=== PATIENT | male | born 1930 | race African-American/Black ===

== ENCOUNTER → 2016-04-24 | Outpatient (CLI) | payer MEDICARE, OTHER ==
[2016-04-25 04:38] LABS: HEPATITIS C VIRUS AB <0.1 s/co ratio (0.0-0.9)
== END ==
LOC: OD 12:00
PROVIDERS: ATTEND Urology
DX: Z13.818 Encounter for screening for other digestive system disorders (principal)
CPT/HCPCS: 36415; 86803; 86804

== ENCOUNTER → 2016-12-11 | Outpatient (CLI) | payer MEDICARE, OTHER ==
--- NOTE | 2016-12-11 14:48 | RADIOLOGY REPORT (SQ) ---
EXAM DESCRIPTION: CT ABD/PELVIS WITH IV ORAL COMPLETED DATE/TIME: 12/11/2016 2:29 pm REASON FOR STUDY: PERIUMBILICAL PAIN R10.33 PERIUMBILICAL PAIN COMPARISON: CT abdomen and pelvis 06/17/2009, 06/18/2010 MRI abdomen 02/14/2016 TECHNIQUE: CT scan of the abdomen and pelvis performed using helical scanning technique with dynamic intravenous contrast injection. Patient drank oral contrast. Images reviewed with lung, soft tissue , and bone windows. Reconstructed coronal and sagittal MPR images reviewed. Delayed images for evalua tion of the urinary system also acquired. All images stored on PACS. All CT scanners at this facility use dose modulation, iterative reconstruction, and/or weight based d osing when appropriate to reduce radiation dose to as low as reasonably achievable (ALARA). [facility]: Dose Right [facility]: CareDose [facility]: Dose Right [facility]: Teradose 4D [facility]: geolad CONTRAST TYPE AND DOSE: contrast/concentration: Isovue 370.00 mg/ml; Total Contrast Delivered: 84.0 ml; Total Saline Delivered: 69.0 ml RENAL FUNCTION: Creatinine 1.0 RADIATION DOSE: Up-to-date CT equipment and radiation dose reduction techniques were employed. CTDIv ol: 6.3 - 7.4 mGy. DLP: 665 mGy-cm.. LIMITATIONS: None. FINDINGS: LOWER CHEST: Small hiatal hernia. Lung bases are clear. Mild gynecomastia. LIVER: Normal size. No masses. No dilated ducts. SPLEEN: Normal size. No focal lesions. PANCREAS: No masses. No significant calcifications. No adjacent inflammation or peripancreatic fluid collections. Pancreatic duct not dilated. GALLBLADDER: Gallbladder is distended. No radiopaque stones. Question gallbladder wall thickening. ADRENAL GLANDS: No significant masses or asymmetry. RIGHT KIDNEY AND URETER: No solid masses. 6.3 cm right upper pole renal cortical cyst. No significa nt calcifications. No hydronephrosis or hydroureter. LEFT KIDNEY AND URETER: No solid masses. 2.3 and 2.1 cm left midpole parapelvic cysts. No signific ant calcifications. No hydronephrosis or hydroureter. AORTA AND VESSELS: No aneurysm. No dissection. Renal arteries, SMA, celiac without stenosis. RETROPERITONEUM: No retroperitoneal adenopathy, hemorrhage or masses. BOWEL AND PERITONEAL CAVITY: No masses or inflammatory changes. No free fluid or peritoneal masses. Patient drank oral contrast. No CT evidence of bowel obstruction. Diffuse colonic diverticulosis wi thout CT signs of acute diverticulitis. APPENDIX: Normal. PELVIS: No mass. No free fluid. Normal bladder. Enlarged prostate, 6.6 x 6.2 cm in size ABDOMINAL WALL: No masses. No hernias. BONES: No significant or acute findings. OTHER: No other significant finding. IMPRESSION: Distended gallbladder with borderline gallbladder wall thickening. Colonic diverticulosis without CT signs of acute diverticulitis. No CT findings worrisome for acute appendicitis. TECHNICAL DOCUMENTATION: JOB ID: [id number] Quality ID # [id number]: Final reports with documentation of one or more dose reduction techniques (e.g., Au tomated exposure control, adjustment of the mA and/or kV according to patient size, use of iterative reconstruction technique) 2010 [employer]- All Rights Reserved
== END ==
LOC: RAD 10:50
PROVIDERS: ATTEND Internal Medicine
DX: R10.33 Periumbilical pain (principal)
CPT/HCPCS: 74177; 82565

== ENCOUNTER → 2016-12-14 | Outpatient (CLI) | payer MEDICARE, OTHER ==
[2016-12-14 13:59] LABS: ABSOLUTE EOSINOPHILS # (AUTO) 0.2 10^3/uL (0.0-0.6); ABSOLUTE LYMPHOCYTES (AUTO) 1.3 10^3/uL (0.5-4.7); ABSOLUTE MONOCYTES (AUTO) 0.4 10^3/uL (0.1-1.4); ABSOLUTE NEUT (AUTO) 2.7 10^3/uL (1.7-8.2); BASOPHILS % (AUTO) 0.4 % (0-2); EOSINOPHILS % (AUTO) 4.8 % (0-6); HEMATOCRIT 43.7 % (37.9-51.0); HEMOGLOBIN 14.9 g/dL (13.5-17.0); LYMPHOCYTES % (AUTO) 27.6 % (13-45); MEAN CORPUSCULAR HEMOGLOBIN 32.5 pg (27.0-33.4); MEAN CORPUSCULAR HGB CONC 34.1 g/dL (32.0-36.0); MEAN CORPUSCULAR VOLUME 95 fl (80-97); MONOCYTES % (AUTO) 9.1 % (3-13); RED BLOOD COUNT 4.58 10^6/uL (4.35-5.55); SEGMENTED NEUTROPHILS % (AUTO) 58.1 % (42-78); WHITE BLOOD COUNT 4.6 10^3/uL (4.0-10.5)
[2016-12-14 14:22] LABS: ALANINE AMINOTRANSFERASE 30 U/L (21-72); ALBUMIN 4.6 g/dL (3.5-5.0); ALKALINE PHOSPHATASE 78 U/L (38-126); ANION GAP 13 (5-19); ASPARTATE AMINO TRANSFERASE 43 U/L (17-59); BILIRUBIN,DIRECT 0.3 mg/dL (0.0-0.4); BILIRUBIN,TOTAL 0.6 mg/dL (0.2-1.3); BLOOD UREA NITROGEN 30 mg/dL (7-20); CALCIUM 9.7 mg/dL (8.4-10.2); CARBON DIOXIDE 27 mmol/L (22-30); CHLORIDE 102 mmol/L (98-107); CREATININE RESULT 1.39 mg/dL (0.52-1.25); GLUCOSE 79 mg/dL (75-110); POTASSIUM 4.3 mmol/L (3.6-5.0); SODIUM 142.2 mmol/L (137-145); TOTAL PROTEIN 7.9 g/dL (6.3-8.2)
== END ==
LOC: OD 12:39
PROVIDERS: ATTEND Surgery
DX: R10.9 Unspecified abdominal pain (principal)
CPT/HCPCS: 36415; 80053; 83690; 85025

== ENCOUNTER 2017-01-12 08:34 | Inpatient (IN) | payer MEDICARE, OTHER ==
[2017-01-05 10:57] LABS: HEMATOCRIT 39.2 % (37.9-51.0); HEMOGLOBIN 13.3 g/dL (13.5-17.0); HGB HCT DIFFERENCE 0.7; MEAN CORPUSCULAR HEMOGLOBIN 32.3 pg (27.0-33.4); MEAN CORPUSCULAR HGB CONC 33.8 g/dL (32.0-36.0); MEAN CORPUSCULAR VOLUME 96 fl (80-97); RED BLOOD COUNT 4.11 10^6/uL (4.35-5.55); RED CELL DISTRIBUTION WIDTH 14.2 % (11.5-14.0); WHITE BLOOD COUNT 3.4 10^3/uL (4.0-10.5)
[2017-01-05 11:26] LABS: ALANINE AMINOTRANSFERASE 35 U/L (21-72); ALBUMIN 3.8 g/dL (3.5-5.0); ALKALINE PHOSPHATASE 93 U/L (38-126); ANION GAP 10 (5-19); ASPARTATE AMINO TRANSFERASE 34 U/L (17-59); BILIRUBIN,DIRECT 0.2 mg/dL (0.0-0.4); BILIRUBIN,TOTAL 0.3 mg/dL (0.2-1.3); BLOOD UREA NITROGEN 17 mg/dL (7-20); CALCIUM 9.5 mg/dL (8.4-10.2); CARBON DIOXIDE 25 mmol/L (22-30); CHLORIDE 109 mmol/L (98-107); GLUCOSE 105 mg/dL (75-110); POTASSIUM 3.9 mmol/L (3.6-5.0); SODIUM 144.1 mmol/L (137-145); TOTAL PROTEIN 6.3 g/dL (6.3-8.2)
--- NOTE | 2017-01-05 13:10 | EKG REPORT ---
SEVERITY:- ABNORMAL ECG - SINUS RHYTHM FIRST DEGREE AV BLOCK LEFT ANTERIOR FASCICULAR BLOCK NONSPECIFIC ST-T CHANGES ANTEROLATERAL LEADS. : Confirmed by: Dino Knapp MD 05-Jan-2017 13:09:42
[~2017-01-12 08:34] MED LIST: ACETAMINOPHEN 325 MG TABLET PO PRN; BUPIVACAINE HCL 0.25 % INJ/PF (2.5 MG/1 ML) 30 ML VIAL ONE; CEFAZOLIN 1 GM/D5W RTU 1 GM/50 ML RTUPB IV PRN; RINGERS SOLUTION,LACTATED 1,000 ML IV PRN
[2017-01-12] MEDS ORDERED: HYDROMORPHONE HCL INJ/PF 2 MG/ML AMPULE ONE (09:51)
[2017-01-12] MEDS ORDERED: FENTANYL CITRATE INJ/PF 100 MCG/2 ML AMPUL ONE (09:51)
[2017-01-12] MEDS ORDERED: MIDAZOLAM 2 MG/2 ML INJ ONE (09:52)
[2017-01-12] MEDS ORDERED: PROPOFOL INJ 200 MG/20 ML VIAL IV ONE (09:52)
[2017-01-12] MEDS ORDERED: EPHEDRINE SULFATE INJ 50 MG/1 ML AMPULE ONE (10:24)
[2017-01-12] MEDS ORDERED: MORPHINE SULFATE 10 MG/ML INJ IV PRN (11:24)
[2017-01-12] MEDS ORDERED: ONDANSETRON HCL INJ/PF 4 MG/2 ML SDV IV PRN ×2 (11:24→11:50)
[2017-01-12] MEDS ORDERED: FENTANYL CITRATE INJ/PF 100 MCG/2 ML AMPUL IV PRN ×3 (11:24)
[2017-01-12] MEDS ORDERED: PROMETHAZINE HCL INJ 25 MG/1 ML VIAL IV PRN (11:24)
[2017-01-12] MEDS ORDERED: DIPHENHYDRAMINE HCL 50 MG/ML VIAL IV PRN (11:24)
[2017-01-12] MEDS ORDERED: NORMAL SALINE 1000 ML 1,000 ML IV PRN (11:50)
[2017-01-12] MEDS ORDERED: OXYCODONE-ACETAMINOPHEN 5-325 MG TABLET PO PRN (11:50)
--- NOTE | 2017-01-12 11:58 | Operative Report ---
Operative Report DATE OF SURGERY: 01/12/17 PREOPERATIVE DIAGNOSIS: Symptomatic cholelithiasis POSTOPERATIVE DIAGNOSIS: Symptomatic cholelithiasis, chronic cholecystitis. OPERATION: Laparoscopic cholecystectomy SURGEON: DEENA FERREIRA ANESTHESIA: GA TISSUE REMOVED OR ALTERED: gallbladder COMPLICATIONS: None ESTIMATED BLOOD LOSS: Minimal INTRAOPERATIVE FINDINGS: Thick-walled contracted gallbladder. No liver lesions seen. PROCEDURE: Informed consent was obtained. Patient was brought to the operating room placed operating table in supine position. After satisfactory induction of general anesthesia, patient's abdomen was prepped and draped in usual sterile fashion. A infraumbilical midline incision was made and dissection carried down to the fascia the peritoneal cavity entered without difficulty. Palacios trocar was inserted. Pneumoperitoneum produced good patient toleration. 5 mm trocar was placed in the subxiphoid location.Two 5 mm trochars were placed in the right subcostal location. The liver appeared normal with no visible lesions at the anterior aspect of the liver. The gallbladder appeared contracted and thick-walled. The gallbladder was grasped and retracted cephalad over the dome of the liver. The infundibulum of the gallbladder was grasped retracted laterally and inferiorly thus exposing calot's triangle. 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 The cystic duct gallbladder junction was clearly identified and the cystic duct was clipped and divided. Cystic artery was likewise taken. The gallbladder was taken off the gallbladder bed using the hook electrocautery technique, the plane was indistinct with inflammatory changes however the gallbladder was removed intact with minimal bleeding at the liver bed during the dissection. The gallbladder was removed with an Endobag through the Palacios trocar site fascial defect. Hemostasis appeared excellent. Operative field was irrigated and irrigant aspirated out. All trochars were removed under the direct vision a laparoscope to ensure hemostasis. The Palacios trocar site fascial defect was closed with interrupted Vicryl sutures. All skin incisions were closed with subcuticular interrupted Monocryl sutures. Marcaine was injected at the port sites. Patient tolerated procedure well no apparent complications and was taken to the recovery area in stable condition.
[2017-01-12] MEDS: FENTANYL CITRATE INJ/PF 100 MCG/2 ML AMPUL ONE ×2 (12:01→12:10)
[2017-01-12] MEDS ORDERED: LIDOCAINE 2% INJ-PF (20 MG/ML) 2 ML AMPUL ONE (13:13)
[2017-01-12] MEDS ORDERED: SUCCINYLCHOLINE CHLORIDE INJ 200 MG/10 ML VIAL ONE (13:13)
[2017-01-12] MEDS ORDERED: GLYCOPYRROLATE INJ 0.4 MG/2 ML VIAL ONE (13:13)
[2017-01-12] MEDS ORDERED: PHENYLEPHRINE HCL INJ/PF 10 MG/1 ML SDV ONE (13:13)
[2017-01-12] MEDS ORDERED: NEOSTIGMINE METHYLSULFATE 10 MG/10 ML VIAL ONE (13:13)
[2017-01-12] MEDS ORDERED: ROCURONIUM BROMIDE INJ 50 MG/5 ML VIAL IV ONE (13:13)
[2017-01-12] MEDS ORDERED: INFLUENZA ADLT QUAD (36MOS+) 2017-18 VAC 0.5 ML SYR IM PRN (14:16)
--- NOTE | 2017-01-12 17:09 | PDOC DISCHARGE SUMMARY ---
Discharge Summary (SDC) - Discharge Final Diagnosis: Chronic cholecystitis Date of Surgery: 01/12/17 Discharge Date: 01/12/17 Condition: Good Treatment or Instructions: Underwent cholecystectomy. May discharge patient home. Follow-up with me in 2 weeks. Stay active but avoid strenuous activity. No driving until next week. Please stay out of work until next week. May shower tomorrow night. Keep Steri -Strips on. Prescriptions: Oxycodone HCl/Acetaminophen [Percocet 5-325 mg Tablet] 1 tab PO ASDIR PRN #15 tablet PRN Reason: Referrals: DEENA FERREIRA MD [ACTIVE STAFF] - 01/27/17 10:15 am Discharge Diet: As Tolerated Discharge Activity: Activity As Tolerated - Stay active but avoid strenuous activity. Report the Following to Your Physician Immediately: Yellow Skin, Fever over 101 Degrees, Unusual Bleeding, Redness, Drainage-Foul Smelling
--- NOTE | 2017-01-12 17:12 | PDOC PROGRESS REPORT ---
Subjective Progress Note for:: 01/12/17 Subjective:: Feels well. Ambulated. Tolerating liquids well. Minimal pain. No nausea. Physical Exam Vital Signs: Temp Pulse Resp BP Pulse Ox 97.4 F 51 L 16 171/65 H 100 01/12/17 13:42 01/12/17 13:42 01/12/17 13:08 01/12/17 13:42 01/12/17 13:42 Intake & Output 01/11/17 01/12/17 01/13/17 06:59 06:59 06:59 Intake Total 2654 Output Total 770 Balance 1884 General appearance: PRESENT: no acute distress, cooperative Respiratory exam: PRESENT: clear to auscultation sanya Cardiovascular exam: PRESENT: RRR GI/Abdominal exam: PRESENT: other - Soft, nondistended, minimal tenderness. Extremities exam: PRESENT: other - No swelling. Results Laboratory Results: 01/05/17 09:45 01/05/17 09:45 Assessment & Plan - Diagnosis (1) Cholecystitis Is this a current diagnosis for this admission?: Yes Plan: Status post laparoscopic cholecystectomy. Doing very well. Wants to go home. I do not see any reason to keep him here.
[2017-01-12 18:42] VITALS: BP 178/77
[2017-01-12] MEDS ORDERED: SIMVASTATIN 40 MG TABLET PO SCH (22:00)
[2017-01-12] MEDS ORDERED: EZETIMIBE 10 MG TABLET PO SCH (22:00)
[2017-01-12] MEDS ORDERED: LACOSAMIDE 100 MG TABLET PO SCH (22:00)
[2017-01-13] MEDS ORDERED: TADALAFIL PO SCH (10:00)
[2017-01-13] MEDS ORDERED: FESOTERODINE FUMARATE PO SCH (10:00)
[2017-01-13] MEDS ORDERED: DUTASTERIDE 0.5 MG CAPSULE PO SCH (10:00)
== END 2017-01-12 19:42 | disposition home or self-care (01) | DRG 419 ==
LOC: INOR 08:34 → 4W 13:07
PROVIDERS: ADMIT Surgery; ATTEND Surgery
PROC: 3E0234Z Introduction of Serum, Toxoid and Vaccine into Muscle, Percutaneous Approach (ICD-10-PCS; 2017-01-12)
PROC: 0FT44ZZ Resection of Gallbladder, Percutaneous Endoscopic Approach (ICD-10-PCS; principal; 2017-01-12 10:30)
DX: K80.10 Calculus of gallbladder with chronic cholecystitis without obstruction (principal); Z23 Encounter for immunization
CPT/HCPCS: 36415; 790; 80053; 85027; 88304; 90686; 93005; 93010; J0330; J0690; J1170; J2250; J2370; J2704; J3010; J3490

== ENCOUNTER → 2017-07-19 | Outpatient (CLI) | payer MEDICARE, OTHER ==
--- NOTE | 2017-07-19 10:15 | RADIOLOGY REPORT (SQ) ---
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 TECHNIQUE: Static and realtime curz scale imaging of the scrotum and testes. Selected color Doppler and spectral images recorded to document blood flow. LIMITATIONS: None. FINDINGS: RIGHT: TESTICLE: Normal size. Normal echotexture. Normal blood flow. No mass. EPIDIDYMIS: Epididymal cyst is identified measuring 1.6 x 1.0 x 1.1 cm in diameters P HYDROCELE OR VARICOCELE: No. HERNIA OR EXTRA-TESTICULAR MASS: No. OTHER: No other significant finding. LEFT: TESTICLE: Normal size. Normal echotexture. Normal blood flow. No mass. EPIDIDYMIS: Epididymal cysts are identified 1 measuring 2.9 x 3.8 x 1.8 cm in diameters and a 2nd piyush suring 1.3 x 1.3 x 1.0 cm in diameters HYDROCELE OR VARICOCELE: No. HERNIA OR EXTRA-TESTICULAR MASS: No. OTHER: No other significant finding. IMPRESSION: Bilateral epididymal cysts as noted above. NO EVIDENCE OF TESTICULAR MASS OR TORSION. TECHNICAL DOCUMENTATION: JOB ID: [id number] [employer]- All Rights Reserved Reading location - IP/workstation name: [email or web address]
== END ==
LOC: RAD 07:57
PROVIDERS: ATTEND Urology
DX: N40.1 Benign prostatic hyperplasia with lower urinary tract symptoms (principal)
CPT/HCPCS: 76870; 93976

== ENCOUNTER → 2018-03-24 | Outpatient (CLI) | payer MEDICARE ==
--- NOTE | 2018-03-25 08:18 | EEG PRO FEE REPORT ---
EEG INTERPRETATION PATIENT NAME: ARI DAILY ROOM#: ORDER#: [id number] DATE OF STUDY: 03/24/2018 : 1930 REFERRING MD: BENI VALDEZ M.D. 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 This EEG was requested for seizures. Physician wants to discontinue Vimpat. EEG Interpretation This EEG was recorded in the awake, drowsy, and sleep states. The awake EEG is characterized by a well organized background with a well developed and reactive posterior dominant rhythm of 8.5 Hz. There was higher amplitude activity and beta activity in the left frontal-central region. Drowsiness is characterized by slowing of the background rhythms. Vertex waves and sleep spindles were seen in the midline head regions. Photic stimulation resulted in no significant changes. Hyperventilation resulted in no significant changes. There were no epileptiform abnormalities noted. The EKG showed a regular rhythm in the 40s. EEG Classification 1. High amplitude beta, left frontal-central region 2. EKG - bradycardia EEG Impression This EEG is mildly abnormal. The beta in the left frontal central region could be consistent with breach {location of prior craniotomy not indicated}. Mild bradycardia may require further investigation. There were no epileptiform abnormalities noted. Clinical correlation is recommended. INTERPRETING PHYSICIAN: HAMMAD GREENE M.D. /: SRIDHAR TT: [id number] ID: [id number] /: [id number] TD: 2030 JOB: [id number] cc:Anjelica HOPSON M.D. > MTDD
== END ==
LOC: NEURO 08:38
PROVIDERS: ATTEND Internal Medicine
DX: G40.909 Epilepsy, unspecified, not intractable, without status epilepticus (principal)
CPT/HCPCS: 95819